=== PATIENT | female | born 1960 | race Two or more races ===

== ENCOUNTER 2018-07-04 22:28 | Emergency (ER) | payer MEDICAID ==
[~2018-07-04] VITALS: Ht 160 cm; Wt 65.8 kg
[2018-07-04 23:43] VITALS: BP 130/86
== END 2018-07-05 02:10 | disposition home or self-care (01) ==
LOC: ER 22:28
DX: S82.832A Other fracture of upper and lower end of left fibula, initial encounter for closed fracture (principal); Z88.5 Allergy status to narcotic agent; W01.0XXA Fall on same level from slipping, tripping and stumbling without subsequent striking against object, initial encounter; Y93.89 Activity, other specified; Y99.8 Other external cause status; Y92.89 Other specified places as the place of occurrence of the external cause
CPT/HCPCS: 29515; 73610